=== PATIENT | male | born 1970 | race Caucasian/White ===

== ENCOUNTER → 2017-01-03 | Outpatient (CLI) | payer OTHER ==
--- NOTE | 2017-01-04 03:45 | REP ---
Clinical: Trauma. Contusion. Technique: AP, lateral, bilateral oblique views of the left second digit. Findings: There is nondisplaced oblique fracture through the middle phalanx. No subcutaneous emphysema. No radiodense foreign body. Impression: Nondisplaced oblique fracture through the middle phalanx. Signed by Yobani Murphy MD 01/04/2017 03:36 A
== END ==
LOC: M WUC 19:12
PROVIDERS: ATTEND Physician Assistant
DX: S60.022A Contusion of left index finger without damage to nail, initial encounter (principal); S62.651A Nondisplaced fracture of middle phalanx of left index finger, initial encounter for closed fracture; X58.XXXA Exposure to other specified factors, initial encounter; Y92.9 Unspecified place or not applicable; Y93.9 Activity, unspecified; Y99.9 Unspecified external cause status